=== PATIENT | male | born 1955 | race Caucasian/White ===

== ENCOUNTER → 2016-10-19 | Outpatient (CLI) | payer BC ==
[2016-10-19 13:14] LABS: HEMATOCRIT 38.5 % (42-52); MEAN CELL VOLUME 81.6 fL (80-100); MEAN CORPUSCULAR HEMOGLOBIN 27.8 pg (25-34); MEAN PLATELET VOLUME 9.5 fL (7.4-10.4); PLATELET COUNT 173 K/uL (130-400); RED BLOOD COUNT 4.72 M/uL (4.7-6.1); WHITE BLOOD COUNT 6.19 K/uL (4.8-10.8)
[2016-10-19 13:20] LABS: URINE APPEARANCE CLEAR (CLEAR); URINE BILIRUBIN NEG (NEG); URINE COLOR YELLOW; URINE NITRITE NEG (NEG); URINE SPECIFIC GRAVITY 1.016 (1.000-1.030); UROBILINOGEN NEG (NEG)
[2016-10-19 13:22] LABS: MANUAL MICROSCOPIC REQUIRED? NO; REVIEW REQ? NO
[2016-10-19 13:31] LABS: BLOOD UREA NITROGEN 31 mg/dl (7-18); BUN/CREATININE RATIO 17.2 (10-20); CARBON DIOXIDE 29 mmol/L (21-32); CHLORIDE 107 mmol/L (98-107); GLUCOSE 78 mg/dl (70-99); SODIUM 144 mmol/L (136-145)
[2016-10-19 13:32] LABS: PHOSPHORUS 3.5 mg/dl (2.5-4.9)
[2016-10-19 13:37] LABS: URINE PROTIEN/CREAT RATIO 5.1 (0-0.2); URINE TOTAL PROTEIN 513.1 mg/dl (0-11.9)
== END | disposition home or self-care (01) ==
LOC: C.LABMFLN 08:27
PROVIDERS: ATTEND Internal Medicine Nephrology
DX: I12.9 Hypertensive chronic kidney disease with stage 1 through stage 4 chronic kidney disease, or unspecified chronic kidney disease (principal); N18.3 Chronic kidney disease, stage 3 (moderate); R80.9 Proteinuria, unspecified; E55.9 Vitamin D deficiency, unspecified

== ENCOUNTER → 2016-12-17 | Outpatient (CLI) | payer BC ==
[2016-12-17 12:57] LABS: HEMATOCRIT 37.8 % (42-52); MEAN CELL VOLUME 82.7 fL (80-100); MEAN CORPUSCULAR HEMOGLOBIN 27.4 pg (25-34); MEAN CORPUSCULAR HGB CONC 33.1 g/dl (32-36); PLATELET COUNT 185 K/uL (130-400); RED BLOOD COUNT 4.57 M/uL (4.7-6.1); WHITE BLOOD COUNT 6.67 K/uL (4.8-10.8)
[2016-12-17 13:31] LABS: URINE PROTIEN/CREAT RATIO 4.5 (0-0.2); URINE TOTAL PROTEIN 534.3 mg/dl (0-11.9)
[2016-12-17 13:32] LABS: URINE APPEARANCE CLEAR (CLEAR); URINE BILIRUBIN NEG (NEG); URINE COLOR YELLOW; URINE NITRITE NEG (NEG); URINE SPECIFIC GRAVITY 1.019 (1.000-1.030); UROBILINOGEN NEG (NEG)
[2016-12-17 13:33] LABS: MANUAL MICROSCOPIC REQUIRED? NO; REVIEW REQ? NO
[2016-12-17 13:47] LABS: BLOOD UREA NITROGEN 38 mg/dl (7-18); BUN/CREATININE RATIO 18.8 (10-20); CALCIUM 9.6 mg/dl (8.5-10.1); CARBON DIOXIDE 28 mmol/L (21-32); CHLORIDE 107 mmol/L (98-107); GLUCOSE 170 mg/dl (70-99); POTASSIUM 4.5 mmol/L (3.5-5.1); SODIUM 141 mmol/L (136-145)
[2016-12-17 13:48] LABS: PHOSPHORUS 2.7 mg/dl (2.5-4.9)
== END | disposition home or self-care (01) ==
LOC: C.LABMFLN 10:45
PROVIDERS: ATTEND Internal Medicine Nephrology
DX: N18.3 Chronic kidney disease, stage 3 (moderate) (principal); E11.9 Type 2 diabetes mellitus without complications; R80.9 Proteinuria, unspecified; E55.9 Vitamin D deficiency, unspecified; I12.9 Hypertensive chronic kidney disease with stage 1 through stage 4 chronic kidney disease, or unspecified chronic kidney disease

== ENCOUNTER → 2017-03-24 | Outpatient (CLI) | payer BC ==
[2017-03-24 18:09] LABS: BLOOD UREA NITROGEN 26 mg/dl (7-18); BUN/CREATININE RATIO 15.5 (10-20); CALCIUM 9.5 mg/dl (8.5-10.1); CARBON DIOXIDE 28 mmol/L (21-32); CHLORIDE 111 mmol/L (98-107); GLUCOSE 123 mg/dl (70-99); POTASSIUM 4.5 mmol/L (3.5-5.1); SODIUM 141 mmol/L (136-145)
[2017-03-24 18:10] LABS: MANUAL MICROSCOPIC REQUIRED? NO; PHOSPHORUS 3.4 mg/dl (2.5-4.9); REVIEW REQ? NO; URINE APPEARANCE CLEAR (CLEAR); URINE BILIRUBIN NEG (NEG); URINE COLOR YELLOW; URINE NITRITE NEG (NEG); URINE PH 6.5 (4.5-7.5); URINE SPECIFIC GRAVITY 1.016 (1.000-1.030); UROBILINOGEN NEG (NEG)
[2017-03-24 18:21] LABS: CREATININE, URINE 70.4 mg/dl; URINE PROTIEN/CREAT RATIO 6.8 (0-0.2); URINE TOTAL PROTEIN 475.3 mg/dl (0-11.9)
== END | disposition home or self-care (01) ==
LOC: C.LABMFLN 13:32
PROVIDERS: ATTEND Internal Medicine Nephrology
DX: I12.9 Hypertensive chronic kidney disease with stage 1 through stage 4 chronic kidney disease, or unspecified chronic kidney disease (principal); N18.3 Chronic kidney disease, stage 3 (moderate); R80.9 Proteinuria, unspecified; E55.9 Vitamin D deficiency, unspecified

== ENCOUNTER → 2017-08-19 | Outpatient (CLI) | payer BC ==
[2017-08-19 17:57] LABS: HEMATOCRIT 34.2 % (42-52); HEMOGLOBIN 11.4 g/dL (14.0-18.0); MEAN CELL VOLUME 81.2 fL (80-100); MEAN CORPUSCULAR HEMOGLOBIN 27.1 pg (25-34); MEAN CORPUSCULAR HGB CONC 33.3 g/dl (32-36); MEAN PLATELET VOLUME 9.7 fL (7.4-10.4); PLATELET COUNT 174 K/uL (130-400); RED CELL DISTRIBUTION WIDTH CV 15.8 % (11.5-14.5); RED CELL DISTRIBUTION WIDTH SD 46.8 fL (36.4-46.3); WHITE BLOOD COUNT 7.01 K/uL (4.8-10.8)
[2017-08-19 19:23] LABS: ALBUMIN 3.1 gm/dl (3.4-5.0); ALKALINE PHOSPHATASE 69 U/L (45-117); ALT/SGPT 18 U/L (12-78); AST/SGOT 17 U/L (15-37); BLOOD UREA NITROGEN 33 mg/dl (7-18); CALCIUM 9.2 mg/dl (8.5-10.1); CARBON DIOXIDE 26 mmol/L (21-32); CREATININE 2.18 mg/dl (0.60-1.40); POTASSIUM 4.3 mmol/L (3.5-5.1); SODIUM 136 mmol/L (136-145); TOTAL PROTEIN 6.4 gm/dl (6.4-8.2)
[2017-08-19 19:53] LABS: GLUCOSE 360 mg/dl (70-99)
== END | disposition home or self-care (01) ==
LOC: C.LABMFLN 13:28
PROVIDERS: ATTEND Internal Medicine Nephrology
DX: I10 Essential (primary) hypertension (principal); N18.3 Chronic kidney disease, stage 3 (moderate); R80.9 Proteinuria, unspecified; E55.9 Vitamin D deficiency, unspecified